=== PATIENT | female | born 1980 | race Caucasian/White ===

== ENCOUNTER 2021-10-21 09:17 | Emergency (ER) | payer BC ==
[2021-10-21] MEDS: Cyclobenzaprine 10 MG Tab PO ONE (10:33)
[2021-10-21] MEDS: Ketorolac 30 MG/ML SDV IM ONE (10:59)
[2021-10-21] MEDS: Nitrofurantoin Monohydrate/Macrocrystalline 100 MG Cap PO ONE (11:00)
== END 2021-10-21 12:15 | disposition home or self-care (01) ==
LOC: FB.ED 09:17
DX: S29.012A Strain of muscle and tendon of back wall of thorax, initial encounter (principal); Z88.0 Allergy status to penicillin; Z88.5 Allergy status to narcotic agent; Z88.8 Allergy status to other drugs, medicaments and biological substances; W00.0XXA Fall on same level due to ice and snow, initial encounter
CPT/HCPCS: 36415; 72072; 72100; 80053; 81001; 85025; 87086; 96372; 99283; A9270-GY; J1885

== ENCOUNTER 2022-01-20 17:59 | Emergency (ER) | payer BC ==
[2022-01-20] MEDS ORDERED: Sodium Chloride 0.9% 1,000 ML IV ONE (18:41)
[2022-01-20] MEDS ORDERED: Ketorolac 30 MG/ML SDV IVPUSH ONE (18:41)
[2022-01-20] MEDS ORDERED: diphenhydrAMINE 50 MG/ML SDV IVPUSH ONE (18:42)
[2022-01-20] MEDS ORDERED: Ondansetron 4 MG/2 ML SDV IVPUSH ONE (18:42)
[2022-01-20] MEDS ORDERED: SUMAtriptan 50 MG Tab PO ONE (18:42)
[2022-01-20] MEDS ORDERED: Labetalol 20 MG/4 ML Syringe IVPUSH STA (20:03)
[2022-01-20] MEDS ORDERED: Morphine 4 MG/ML VIAL IVPUSH ONE (20:58)
[2022-01-20] MEDS ORDERED: HYDROmorphone 2 MG/ML SDV IVPUSH ONE (22:15)
== END 2022-01-20 23:25 | disposition home or self-care (01) ==
LOC: FB.ED 17:59
DX: G43.909 Migraine, unspecified, not intractable, without status migrainosus (principal); F17.210 Nicotine dependence, cigarettes, uncomplicated; Z88.0 Allergy status to penicillin; Z88.5 Allergy status to narcotic agent; Z88.8 Allergy status to other drugs, medicaments and biological substances
CPT/HCPCS: 96361; 96374; 96375; 99282; 99283-25; A9270-GY; J1170; J1200; J1885; J2270; J2405; J3490; J7030

== ENCOUNTER 2022-01-23 03:01 | Emergency (ER) | payer BC ==
[2022-01-23] MEDS ORDERED: Promethazine 25 MG/ML SDV IM ONE (03:17)
[2022-01-23] MEDS ORDERED: Ketorolac 30 MG/ML SDV IM ONE (03:17)
[2022-01-23] MEDS ORDERED: Prochlorperazine 10 MG/2 ML SDV IM ONE (03:17)
[2022-01-23] MEDS ORDERED: Acetaminophen/oxyCODONE 325-5 MG Tab PO PRN (03:17)
[2022-01-23] MEDS ORDERED: Dihydroergotamine 1 MG/1 ML Amp SUBCUT ONE (04:18)
[2022-01-23] MEDS ORDERED: Cyclobenzaprine 10 MG Tab PO ONE (04:19)
== END 2022-01-23 05:42 | disposition home or self-care (01) ==
LOC: FB.ED 03:01
DX: G43.909 Migraine, unspecified, not intractable, without status migrainosus (principal); Z88.6 Allergy status to analgesic agent; Z88.5 Allergy status to narcotic agent; Z88.0 Allergy status to penicillin; Z79.899 Other long term (current) drug therapy
CPT/HCPCS: 96372; 99282; 99283; A9270-GY; J0780; J1110; J1885; J2550

== ENCOUNTER 2022-02-05 03:40 | Emergency (ER) | payer BC ==
[2022-02-05] MEDS ORDERED: Lactated Ringers 1,000 ML IV ONE (04:01)
[2022-02-05] MEDS ORDERED: diphenhydrAMINE 50 MG/ML SDV IVPUSH ONE (04:02)
[2022-02-05] MEDS ORDERED: Ketorolac 30 MG/ML SDV IVPUSH ONE (04:02)
[2022-02-05] MEDS ORDERED: Prochlorperazine 10 MG/2 ML SDV IVPUSH ONE ×2 (04:03→05:28)
[2022-02-05] MEDS: Sodium Chloride 0.9% 10 ML Syringe FLUSH PRN ×3 (04:17→04:30)
[2022-02-05] MEDS ORDERED: Magnesium Sulfate/Water 2 GM in Premix Bag 1 BAG IV ONE (05:22)
[2022-02-05] MEDS ORDERED: Dihydroergotamine 1 MG/ML SDV IVPUSH ONE (05:26)
[2022-02-05] MEDS ORDERED: Atenolol 50 MG Tab PO ONE (06:50)
== END 2022-02-05 07:30 | disposition home or self-care (01) ==
LOC: FB.ED 03:40
DX: G43.909 Migraine, unspecified, not intractable, without status migrainosus (principal); I10 Essential (primary) hypertension; Z88.5 Allergy status to narcotic agent; Z88.8 Allergy status to other drugs, medicaments and biological substances; Z88.0 Allergy status to penicillin
CPT/HCPCS: 96365; 96366; 96375; 96376; 99282; 99283-25; A9270-GY; J0780; J1110; J1200; J1885; J3475; J3490; J7120

== ENCOUNTER 2022-02-26 18:53 | Emergency (ER) | payer BC ==
[2022-02-26] MEDS ORDERED: Morphine 2 MG/ML SYRINGE IVPUSH STA (19:15)
[2022-02-26] MEDS ORDERED: Ketorolac 30 MG/ML SDV IVPUSH ONE (19:15)
[2022-02-26] MEDS ORDERED: Labetalol 20 MG/4 ML Syringe IVPUSH ONE ×2 (19:15→19:58)
[2022-02-26] MEDS ORDERED: hydrOXYzine HCl 50 MG/ML SDV IM ONE (19:15)
[2022-02-26] MEDS ORDERED: Sodium Chloride 0.9% 10 ML Syringe FLUSH PRN (19:15)
[2022-02-26 19:29] LABS: ESTIMATED GFR 94 mL/min (>60)
[2022-02-26] MEDS ORDERED: Potassium Chloride 20 MEQ Tab.ER PO STA (19:53)
[2022-02-26] MEDS ORDERED: cloNIDine 0.1 MG Tab PO STA (19:59)
== END 2022-02-26 21:00 | disposition home or self-care (01) ==
LOC: FB.ED 18:53
DX: R07.89 Other chest pain (principal); G43.909 Migraine, unspecified, not intractable, without status migrainosus; I16.9 Hypertensive crisis, unspecified; F17.210 Nicotine dependence, cigarettes, uncomplicated; Z88.5 Allergy status to narcotic agent; Z88.0 Allergy status to penicillin; Z79.899 Other long term (current) drug therapy; Z90.710 Acquired absence of both cervix and uterus
CPT/HCPCS: 36415; 80053; 84484; 85025; 93005; 96372; 96374; 96375; 96376; 99285; A9270; J1885; J2270; J3410; J3490

== ENCOUNTER 2022-03-05 22:10 | Emergency (ER) | payer BC ==
[2022-03-05] MEDS ORDERED: Sulfamethoxazole/Trimethoprim 800-160 MG Tab PO ONE (22:11)
[2022-03-05] MEDS ORDERED: Acetaminophen/oxyCODONE 325-5 MG Tab PO STA (22:35)
[2022-03-05] MEDS ORDERED: Ondansetron 4 MG Tab.DIS PO STA (22:35)
[2022-03-05] MEDS ORDERED: Ketorolac 30 MG/ML SDV IM STA (22:35)
[2022-03-05 22:52] LABS: ESTIMATED GFR 94 mL/min (>60)
== END 2022-03-05 22:40 | disposition home or self-care (01) ==
LOC: FB.ED 22:10
DX: N39.0 Urinary tract infection, site not specified (principal); G43.909 Migraine, unspecified, not intractable, without status migrainosus; I10 Essential (primary) hypertension; Z88.0 Allergy status to penicillin; Z88.5 Allergy status to narcotic agent; Z79.899 Other long term (current) drug therapy
CPT/HCPCS: 36415; 80048; 81001; 85025; 87086; 96372; 99282; 99283; A9270; J1885; Q0162

== ENCOUNTER 2022-03-07 17:11 | Emergency (ER) | payer BC ==
[2022-03-07] MEDS ORDERED: Cyclobenzaprine 10 MG Tab PO ONE (17:12)
[2022-03-07] MEDS: Ketorolac 30 MG/ML SDV IM ONE (17:31)
[2022-03-07] MEDS: Ondansetron 4 MG Tab.DIS PO ONE (17:31)
[2022-03-07 18:01] LABS: ESTIMATED GFR 58 mL/min (>60)
== END 2022-03-07 20:00 | disposition home or self-care (01) ==
LOC: FB.ED 17:11
DX: N39.0 Urinary tract infection, site not specified (principal); I10 Essential (primary) hypertension; K21.9 Gastro-esophageal reflux disease without esophagitis; Z88.0 Allergy status to penicillin; Z88.5 Allergy status to narcotic agent
CPT/HCPCS: 36415; 74176; 80048; 81001; 85027; 86140; 96372; 99282; 99284; A9270-GY; J1885; Q0162

== ENCOUNTER 2022-03-20 03:16 | Emergency (ER) | payer BC ==
[2022-03-20] MEDS: Ketorolac 30 MG/ML SDV IM ONE (04:09)
[2022-03-20] MEDS: Ondansetron 4 MG Tab.DIS PO ONE (04:10)
[2022-03-20] MEDS: oxyCODONE 5 MG Tab PO STA (04:43)
== END 2022-03-20 04:45 | disposition home or self-care (01) ==
LOC: FB.ED 03:16
DX: G43.909 Migraine, unspecified, not intractable, without status migrainosus (principal); I10 Essential (primary) hypertension; K21.9 Gastro-esophageal reflux disease without esophagitis; F17.210 Nicotine dependence, cigarettes, uncomplicated; Z88.0 Allergy status to penicillin; Z88.5 Allergy status to narcotic agent; Z79.899 Other long term (current) drug therapy
CPT/HCPCS: 96372; 99283; A9270-GY; J1885; Q0162

== ENCOUNTER 2022-04-25 01:46 | Emergency (ER) | payer BC ==
[2022-04-25] MEDS ORDERED: Ondansetron 4 MG Tab.DIS PO ONE (02:04)
[2022-04-25] MEDS ORDERED: Ketorolac 30 MG/ML SDV IM STA (02:04)
[2022-04-25] MEDS ORDERED: Acetaminophen/oxyCODONE 325-5 MG Tab PO STA (02:04)
== END 2022-04-25 02:40 | disposition home or self-care (01) ==
LOC: FB.ED 01:46
DX: G43.909 Migraine, unspecified, not intractable, without status migrainosus (principal); I10 Essential (primary) hypertension; Z88.5 Allergy status to narcotic agent; Z88.0 Allergy status to penicillin; Z79.899 Other long term (current) drug therapy; Z90.710 Acquired absence of both cervix and uterus
CPT/HCPCS: 96372; 99283; A9270; J1885; Q0162

== ENCOUNTER 2022-05-13 21:46 | Emergency (ER) | payer BC ==
[2022-05-13] MEDS ORDERED: Ondansetron 4 MG Tab.DIS PO STA (22:15)
[2022-05-13] MEDS ORDERED: Acetaminophen/oxyCODONE 325-5 MG Tab PO STA (22:15)
[2022-05-13] MEDS ORDERED: Ketorolac 30 MG/ML SDV IM STA (22:15)
== END 2022-05-13 22:55 | disposition home or self-care (01) ==
LOC: FB.ED 21:46
DX: G43.909 Migraine, unspecified, not intractable, without status migrainosus (principal); I10 Essential (primary) hypertension; Z88.5 Allergy status to narcotic agent; Z88.0 Allergy status to penicillin; Z90.710 Acquired absence of both cervix and uterus
CPT/HCPCS: 96372; 99283; A9270; J1885; Q0162

== ENCOUNTER 2022-05-14 16:30 | Emergency (ER) | payer BC ==
[2022-05-14] MEDS ORDERED: Acetaminophen/oxyCODONE 325-5 MG Tab PO ONE (16:31)
[2022-05-14] MEDS ORDERED: Acetaminophen/oxyCODONE 325-5 MG Tab PO PRN (16:47)
[2022-05-14] MEDS ORDERED: hydrOXYzine HCl 50 MG/ML SDV IM ONE (16:49)
[2022-05-14] MEDS ORDERED: Ketorolac 30 MG/ML SDV IM STA (16:49)
== END 2022-05-14 18:30 | disposition home or self-care (01) ==
LOC: FB.ED 16:30
DX: G43.909 Migraine, unspecified, not intractable, without status migrainosus (principal); I10 Essential (primary) hypertension; Z88.0 Allergy status to penicillin; Z88.5 Allergy status to narcotic agent; Z79.899 Other long term (current) drug therapy
CPT/HCPCS: 96372; 99283; A9270-GY; J1885; J3410

== ENCOUNTER 2022-07-04 03:13 | Emergency (ER) | payer BC ==
[2022-07-04] MEDS ORDERED: Ketorolac 30 MG/ML SDV IM ONE (03:45)
[2022-07-04] MEDS ORDERED: hydrOXYzine HCl 50 MG/ML SDV IM ONE (03:46)
[2022-07-04] MEDS ORDERED: hydrOXYzine HCl 50 MG/ML SDV ONE (03:53)
[2022-07-04] MEDS: Ketorolac 30 MG/ML SDV IVPUSH ONE ×2 (03:53→04:06)
[2022-07-04] MEDS: Metoclopramide 10 MG/2 ML SDV IVPUSH ONE ×2 (03:54→03:55)
== END 2022-07-04 04:05 | disposition home or self-care (01) ==
LOC: FB.ED 03:13
DX: G43.919 Migraine, unspecified, intractable, without status migrainosus (principal); I10 Essential (primary) hypertension; F17.210 Nicotine dependence, cigarettes, uncomplicated; Z79.899 Other long term (current) drug therapy; Z90.710 Acquired absence of both cervix and uterus
CPT/HCPCS: 96372; 96374; 99283; J1885; J2765; J3410

== ENCOUNTER 2022-07-08 03:15 | Emergency (ER) | payer BC ==
[2022-07-08] MEDS ORDERED: Sodium Chloride 0.9% 10 ML Syringe FLUSH PRN (03:59)
[2022-07-08] MEDS ORDERED: Sodium Chloride 0.9% 1,000 ML IV ONE (04:00)
[2022-07-08] MEDS ORDERED: Ketorolac 30 MG/ML SDV IVPUSH ONE (04:00)
[2022-07-08] MEDS ORDERED: Prochlorperazine 10 MG/2 ML SDV IVPUSH ONE (04:00)
[2022-07-08] MEDS ORDERED: Acetaminophen/oxyCODONE 325-5 MG Tab PO ONE (04:57)
== END 2022-07-08 05:11 | disposition home or self-care (01) ==
LOC: FB.ED 03:15
DX: G43.919 Migraine, unspecified, intractable, without status migrainosus (principal); I10 Essential (primary) hypertension; Z88.5 Allergy status to narcotic agent; Z88.0 Allergy status to penicillin; Z79.899 Other long term (current) drug therapy
CPT/HCPCS: 96361; 96374; 96375; 99283; A9270; J0780; J1885; J7030

== ENCOUNTER 2022-09-02 22:28 | Emergency (ER) | payer SELFPAY ==
[2022-09-02] MEDS ORDERED: Cyclobenzaprine 10 MG Tab PO ONE (22:42)
[2022-09-02] MEDS ORDERED: Acetaminophen/oxyCODONE 325-5 MG Tab PO PRN (22:42)
[2022-09-02] MEDS ORDERED: Ondansetron 4 MG Tab.DIS PO ONE (23:51)
== END 2022-09-03 01:19 | disposition home or self-care (01) ==
LOC: FB.ED 22:28
DX: S16.1XXA Strain of muscle, fascia and tendon at neck level, initial encounter (principal); S39.012A Strain of muscle, fascia and tendon of lower back, initial encounter; J06.9 Acute upper respiratory infection, unspecified; I10 Essential (primary) hypertension; Z88.5 Allergy status to narcotic agent; Z88.0 Allergy status to penicillin; Z79.899 Other long term (current) drug therapy; Z90.710 Acquired absence of both cervix and uterus; Z72.0 Tobacco use; W00.9XXA Unspecified fall due to ice and snow, initial encounter
CPT/HCPCS: 72040; 72072; 72100; 72220; 87651-QW; 99283; A9270-GY; Q0162

== ENCOUNTER 2022-09-15 21:15 | Emergency (ER) | payer SELFPAY ==
[2022-09-15] MEDS ORDERED: Acetaminophen/oxyCODONE 325-5 MG Tab PO PRN (21:27)
[2022-09-15] MEDS ORDERED: Ketorolac 30 MG/ML SDV IM STA (21:27)
[2022-09-15] MEDS ORDERED: hydrOXYzine HCl 50 MG/ML SDV IM ONE (21:27)
== END 2022-09-15 22:20 | disposition home or self-care (01) ==
LOC: FB.ED 21:15
DX: G43.909 Migraine, unspecified, not intractable, without status migrainosus (principal); M50.90 Cervical disc disorder, unspecified, unspecified cervical region; I10 Essential (primary) hypertension; K21.9 Gastro-esophageal reflux disease without esophagitis; Z88.0 Allergy status to penicillin; Z88.5 Allergy status to narcotic agent
CPT/HCPCS: 96372; 99283; A9270-GY; J1885; J3410

== ENCOUNTER 2022-10-28 19:49 | Emergency (ER) | payer SELFPAY ==
[2022-10-28] MEDS ORDERED: hydrOXYzine HCl 50 MG/ML SDV IM ONE (20:43)
[2022-10-28] MEDS ORDERED: Ketorolac 30 MG/ML SDV IM STA (20:43)
[2022-10-28] MEDS ORDERED: Acetaminophen/oxyCODONE 325-5 MG Tab PO STA (20:43)
[2022-10-28] MEDS ORDERED: LORazepam 2 MG/ML SDV IVPUSH STA (20:46)
[2022-10-28] MEDS ORDERED: Ketorolac 30 MG/ML SDV ONE (21:12)
== END 2022-10-28 21:20 | disposition home or self-care (01) ==
LOC: FB.ED 19:49
DX: G43.909 Migraine, unspecified, not intractable, without status migrainosus (principal); M50.90 Cervical disc disorder, unspecified, unspecified cervical region; I10 Essential (primary) hypertension; Z88.0 Allergy status to penicillin; Z88.5 Allergy status to narcotic agent
CPT/HCPCS: 96372; 99283; A9270-GY; J1885; J3410

== ENCOUNTER 2022-10-31 17:47 | Emergency (ER) | payer SELFPAY ==
[2022-10-31] MEDS ORDERED: Acetaminophen/oxyCODONE 325-5 MG Tab PO PRN (18:09)
[2022-10-31] MEDS ORDERED: hydrOXYzine HCl 50 MG/ML SDV IM ONE (18:10)
[2022-10-31] MEDS ORDERED: Ketorolac 30 MG/ML SDV IM ONE (18:10)
== END 2022-10-31 18:53 | disposition home or self-care (01) ==
LOC: FB.ED 17:47
DX: G43.909 Migraine, unspecified, not intractable, without status migrainosus (principal); I10 Essential (primary) hypertension; Z88.5 Allergy status to narcotic agent; Z88.0 Allergy status to penicillin; Z72.0 Tobacco use
CPT/HCPCS: 96372; 99283; A9270-GY; J1885; J3410

== ENCOUNTER 2022-11-02 18:20 | Emergency (ER) | payer OTHER ==
[2022-11-02] MEDS ORDERED: Acetaminophen/oxyCODONE 325-5 MG Tab PO ONE (18:21)
== END 2022-11-02 20:11 | disposition home or self-care (01) ==
LOC: FB.ED 18:20
DX: S43.402A Unspecified sprain of left shoulder joint, initial encounter (principal); I10 Essential (primary) hypertension; K21.9 Gastro-esophageal reflux disease without esophagitis; Z88.5 Allergy status to narcotic agent; Z88.0 Allergy status to penicillin; V86.95XA Unspecified occupant of 3- or 4- wheeled all-terrain vehicle (ATV) injured in nontraffic accident, initial encounter; Y92.410 Unspecified street and highway as the place of occurrence of the external cause
CPT/HCPCS: 73030; 73110; 99283; A9270

== ENCOUNTER 2022-11-11 13:00 | Emergency (ER) | payer SELFPAY ==
[2022-11-11] MEDS ORDERED: Ketorolac 30 MG/ML SDV IM ONE (13:56)
[2022-11-11] MEDS ORDERED: hydrOXYzine HCl 50 MG/ML SDV IM ONE (13:56)
[2022-11-11] MEDS ORDERED: Acetaminophen/oxyCODONE 325-5 MG Tab PO ONE (13:57)
== END 2022-11-11 14:30 | disposition home or self-care (01) ==
LOC: FB.ED 13:00
DX: G43.911 Migraine, unspecified, intractable, with status migrainosus (principal); I10 Essential (primary) hypertension; Z88.0 Allergy status to penicillin; Z88.5 Allergy status to narcotic agent; Z79.899 Other long term (current) drug therapy; Z90.710 Acquired absence of both cervix and uterus; Z72.0 Tobacco use
CPT/HCPCS: 96372; 99283; A9270; J1885; J3410

== ENCOUNTER 2022-11-16 11:19 | Emergency (ER) | payer SELFPAY ==
[2022-11-16] MEDS ORDERED: Prochlorperazine 10 MG/2 ML SDV IM ONE (12:21)
[2022-11-16] MEDS ORDERED: Ketorolac 30 MG/ML SDV IM ONE (12:23)
[2022-11-16] MEDS ORDERED: Acetaminophen/oxyCODONE 325-5 MG Tab PO PRN (12:23)
== END 2022-11-16 13:22 | disposition home or self-care (01) ==
LOC: FB.ED 11:19
DX: G43.911 Migraine, unspecified, intractable, with status migrainosus (principal); I10 Essential (primary) hypertension; Z88.0 Allergy status to penicillin; Z88.5 Allergy status to narcotic agent; Z72.0 Tobacco use
CPT/HCPCS: 96372; 99283; A9270; J0780; J1885

== ENCOUNTER 2022-11-21 19:54 | Emergency (ER) | payer MEDICAID ==
[2022-11-21] MEDS: hydrOXYzine HCl 50 MG/ML SDV IM ONE (20:19)
[2022-11-21] MEDS: Acetaminophen/oxyCODONE 325-5 MG Tab PO STA (20:19)
[2022-11-21] MEDS: Ketorolac 30 MG/ML SDV IM STA (20:19)
== END 2022-11-21 21:10 | disposition home or self-care (01) ==
LOC: FB.ED 19:54
DX: G43.911 Migraine, unspecified, intractable, with status migrainosus (principal); M50.90 Cervical disc disorder, unspecified, unspecified cervical region; I10 Essential (primary) hypertension; F17.210 Nicotine dependence, cigarettes, uncomplicated; Z88.0 Allergy status to penicillin; Z88.5 Allergy status to narcotic agent; Z79.899 Other long term (current) drug therapy
CPT/HCPCS: 96372; 99283; A9270; J1885; J3410

== ENCOUNTER 2022-11-23 18:51 | Emergency (ER) | payer MEDICAID ==
[2022-11-23] MEDS: Ketorolac 30 MG/ML SDV IM ONE (19:21)
[2022-11-23] MEDS: Prochlorperazine 10 MG/2 ML SDV IM ONE (19:21)
[2022-11-23] MEDS: Acetaminophen/oxyCODONE 325-5 MG Tab PO SCH (19:22)
== END 2022-11-23 19:30 | disposition home or self-care (01) ==
LOC: FB.ED 18:51
DX: G43.909 Migraine, unspecified, not intractable, without status migrainosus (principal); I10 Essential (primary) hypertension; Z88.0 Allergy status to penicillin; Z88.5 Allergy status to narcotic agent
CPT/HCPCS: 96372; 99283; A9270-GY; J0780; J1885

== ENCOUNTER 2022-11-25 14:53 | Emergency (ER) | payer MEDICAID ==
[2022-11-25] MEDS ORDERED: Ketorolac 30 MG/ML SDV IM STA (15:21)
[2022-11-25] MEDS ORDERED: Cyclobenzaprine 10 MG Tab PO STA (15:21)
[2022-11-25] MEDS ORDERED: Acetaminophen/oxyCODONE 325-5 MG Tab PO PRN (16:15)
== END 2022-11-25 17:15 | disposition home or self-care (01) ==
LOC: FB.ED 14:53
DX: S39.012A Strain of muscle, fascia and tendon of lower back, initial encounter (principal); I10 Essential (primary) hypertension; Z88.0 Allergy status to penicillin; Z88.5 Allergy status to narcotic agent; Z72.0 Tobacco use; W00.0XXA Fall on same level due to ice and snow, initial encounter
CPT/HCPCS: 72040; 72072; 72100; 96372; 99283; A9270; J1885

== ENCOUNTER 2022-12-02 11:27 | Emergency (ER) | payer MEDICAID, OTHER ==
[2022-12-02] MEDS ORDERED: Prochlorperazine 10 MG/2 ML SDV IM ONE (12:20)
[2022-12-02] MEDS ORDERED: diphenhydrAMINE 50 MG/ML SDV IM ONE (12:20)
[2022-12-02] MEDS ORDERED: Ketorolac 30 MG/ML SDV IM ONE (12:21)
[2022-12-02] MEDS ORDERED: Acetaminophen/oxyCODONE 325-5 MG Tab PO STA (12:21)
[2022-12-02] MEDS ORDERED: Dexamethasone 4 MG/ML 5 ML MDV IM ONE (12:22)
== END 2022-12-02 12:43 | disposition home or self-care (01) ==
LOC: FB.ED 11:27
DX: G43.911 Migraine, unspecified, intractable, with status migrainosus (principal); M50.90 Cervical disc disorder, unspecified, unspecified cervical region
CPT/HCPCS: 96372; 99283; A9270; J0780; J1100; J1200; J1885

== ENCOUNTER 2022-12-10 18:15 | Emergency (ER) | payer SELFPAY ==
[2022-12-10] MEDS ORDERED: Ketorolac 30 MG/ML SDV IM ONE (19:20)
[2022-12-10] MEDS ORDERED: Acetaminophen/oxyCODONE 325-5 MG Tab PO ONE (19:21)
[2022-12-10] MEDS ORDERED: Prochlorperazine 10 MG Tab PO ONE (19:21)
== END 2022-12-10 19:40 | disposition home or self-care (01) ==
LOC: FB.ED 18:15
DX: S16.1XXA Strain of muscle, fascia and tendon at neck level, initial encounter (principal); G43.909 Migraine, unspecified, not intractable, without status migrainosus; M40.50 Lordosis, unspecified, site unspecified; I10 Essential (primary) hypertension; Z72.0 Tobacco use; Z88.0 Allergy status to penicillin; Z88.5 Allergy status to narcotic agent
CPT/HCPCS: 96372; 99283; A9270-GY; J1885; Q0164

== ENCOUNTER 2022-12-16 15:25 | Emergency (ER) | payer SELFPAY ==
[2022-12-16] MEDS ORDERED: Prochlorperazine 10 MG Tab PO ONE (16:18)
[2022-12-16] MEDS ORDERED: Ketorolac 30 MG/ML SDV IM ONE (16:18)
[2022-12-16] MEDS ORDERED: Acetaminophen/oxyCODONE 325-5 MG Tab PO ONE (16:20)
== END 2022-12-16 16:45 | disposition home or self-care (01) ==
LOC: FB.ED 15:25
DX: G43.911 Migraine, unspecified, intractable, with status migrainosus (principal); I10 Essential (primary) hypertension; Z72.0 Tobacco use; Z88.5 Allergy status to narcotic agent; Z88.0 Allergy status to penicillin; Z79.899 Other long term (current) drug therapy; Z98.890 Other specified postprocedural states
CPT/HCPCS: 96372; 99283; A9270-GY; J1885; Q0164

== ENCOUNTER 2023-01-01 09:52 | Emergency (ER) | payer SELFPAY ==
[2023-01-01] MEDS ORDERED: Acetaminophen/oxyCODONE 325-5 MG Tab PO STA (10:24)
[2023-01-01] MEDS ORDERED: Ondansetron 4 MG Tab.DIS PO ONE (10:24)
[2023-01-01] MEDS ORDERED: Ketorolac 30 MG/ML SDV IM STA (10:24)
== END 2023-01-01 10:57 | disposition home or self-care (01) ==
LOC: FB.ED 09:52
DX: G43.909 Migraine, unspecified, not intractable, without status migrainosus (principal); I10 Essential (primary) hypertension; Z88.5 Allergy status to narcotic agent; Z88.0 Allergy status to penicillin; Z79.899 Other long term (current) drug therapy
CPT/HCPCS: 96372; 99283; A9270; J1885; Q0162

== ENCOUNTER 2023-01-10 20:46 | Emergency (ER) | payer SELFPAY ==
[2023-01-10] MEDS ORDERED: Promethazine 25 MG/ML SDV IM PRN (21:06)
[2023-01-10] MEDS ORDERED: Ketorolac 30 MG/ML SDV IM ONE (21:06)
[2023-01-10] MEDS ORDERED: HYDROmorphone 2 MG/ML SDV IM ONE (21:07)
[2023-01-10] MEDS ORDERED: Dexamethasone 4 MG/ML SDV IM ONE (21:11)
== END 2023-01-10 23:08 | disposition home or self-care (01) ==
LOC: FB.ED 20:46
DX: G43.911 Migraine, unspecified, intractable, with status migrainosus (principal); I10 Essential (primary) hypertension; Z79.899 Other long term (current) drug therapy; Z98.890 Other specified postprocedural states; Z88.5 Allergy status to narcotic agent; Z88.0 Allergy status to penicillin
CPT/HCPCS: 96372; 99283; J1100; J1170; J2550

== ENCOUNTER 2023-01-24 10:19 | Emergency (ER) | payer SELFPAY ==
[2023-01-24] MEDS ORDERED: Ondansetron 8 MG Tab.DIS PO ONE (10:39)
[2023-01-24] MEDS ORDERED: Acetaminophen/oxyCODONE 325-5 MG Tab PO STA (10:39)
[2023-01-24] MEDS ORDERED: Dihydroergotamine 1 MG/1 ML Amp SUBCUT ONE (10:39)
[2023-01-24] MEDS ORDERED: Ketorolac 30 MG/ML SDV IM STA (10:39)
== END 2023-01-24 11:25 | disposition home or self-care (01) ==
LOC: FB.ED 10:19
DX: G43.909 Migraine, unspecified, not intractable, without status migrainosus (principal); I10 Essential (primary) hypertension; Z88.0 Allergy status to penicillin; Z88.5 Allergy status to narcotic agent
CPT/HCPCS: 96372; 99283; A9270; J1110; J1885

== ENCOUNTER 2023-02-17 14:19 | Emergency (ER) | payer MEDICAID ==
[2023-02-17] MEDS: Dihydroergotamine 1 MG/1 ML Amp SUBCUT ONE (14:54)
[2023-02-17] MEDS: Cyclobenzaprine 10 MG Tab PO ONE (14:54)
[2023-02-17] MEDS: Ondansetron 8 MG Tab.DIS PO ONE (14:55)
[2023-02-17] MEDS: Acetaminophen/oxyCODONE 325-5 MG Tab PO PRN (14:55)
[2023-02-17] MEDS: Ketorolac 30 MG/ML SDV IM ONE (15:03)
== END 2023-02-17 15:45 | disposition home or self-care (01) ==
LOC: FB.ED 14:19
DX: G43.909 Migraine, unspecified, not intractable, without status migrainosus (principal); G89.4 Chronic pain syndrome; M54.2 Cervicalgia; I10 Essential (primary) hypertension; Z88.0 Allergy status to penicillin; Z88.5 Allergy status to narcotic agent; Z79.899 Other long term (current) drug therapy
CPT/HCPCS: 96372; 99283; A9270-GY; J1110; J1885

== ENCOUNTER 2023-03-25 11:34 | Emergency (ER) | payer SELFPAY ==
[2023-03-25] MEDS ORDERED: Prochlorperazine 10 MG/2 ML SDV IM ONE (12:01)
[2023-03-25] MEDS ORDERED: Ketorolac 30 MG/ML SDV IM ONE (12:01)
[2023-03-25] MEDS ORDERED: Acetaminophen/oxyCODONE 325-5 MG Tab PO STA (12:01)
== END 2023-03-25 12:22 | disposition home or self-care (01) ==
LOC: FB.ED 11:34
DX: G43.909 Migraine, unspecified, not intractable, without status migrainosus (principal); I10 Essential (primary) hypertension; Z88.5 Allergy status to narcotic agent; Z88.0 Allergy status to penicillin
CPT/HCPCS: 96372; 99283; A9270-GY; J0780; J1885

== ENCOUNTER 2023-06-29 10:41 | Emergency (ER) | payer SELFPAY ==
[2023-06-29] MEDS ORDERED: Ketorolac 30 MG/ML SDV IM STA (10:59)
[2023-06-29] MEDS ORDERED: Acetaminophen/oxyCODONE 325-5 MG Tab PO STA (10:59)
[2023-06-29] MEDS ORDERED: Prochlorperazine 10 MG/2 ML SDV IM ONE (10:59)
== END 2023-06-29 11:14 | disposition home or self-care (01) ==
LOC: FB.ED 10:41
DX: G43.909 Migraine, unspecified, not intractable, without status migrainosus (principal); I10 Essential (primary) hypertension; F17.210 Nicotine dependence, cigarettes, uncomplicated; Z98.890 Other specified postprocedural states; Z88.5 Allergy status to narcotic agent; Z88.0 Allergy status to penicillin; Z79.899 Other long term (current) drug therapy
CPT/HCPCS: 96372; 99283; A9270-GY; J0780; J1885

== ENCOUNTER 2023-08-25 18:04 | Emergency (ER) | payer SELFPAY ==
[2023-08-25] MEDS ORDERED: Ketorolac 30 MG/ML SDV IM ONE (18:40)
[2023-08-25] MEDS ORDERED: Prochlorperazine 10 MG/2 ML SDV IM ONE (18:40)
[2023-08-25] MEDS ORDERED: Acetaminophen/oxyCODONE 325-5 MG Tab PO STA (18:40)
== END 2023-08-25 19:04 | disposition home or self-care (01) ==
LOC: FB.ED 18:04
DX: G43.909 Migraine, unspecified, not intractable, without status migrainosus (principal); I10 Essential (primary) hypertension; Z88.5 Allergy status to narcotic agent; Z88.0 Allergy status to penicillin; Z79.899 Other long term (current) drug therapy; Z90.710 Acquired absence of both cervix and uterus
CPT/HCPCS: 96372; 99283; A9270; J0780; J1885

== ENCOUNTER 2023-09-18 18:11 | Emergency (ER) | payer SELFPAY ==
[2023-09-18] MEDS: SUMAtriptan 6 MG/0.5 ML SDV SUBCUT ONE ×2 (18:29→18:56)
[2023-09-18] MEDS: diphenhydrAMINE 50 MG/ML SDV IVPUSH ONE (18:29)
[2023-09-18] MEDS: Ketorolac 30 MG/ML SDV IVPUSH ONE (18:29)
[2023-09-18] MEDS: Metoclopramide 10 MG/2 ML SDV IVPUSH ONE (18:29)
[2023-09-18] MEDS: Metoclopramide 10 MG/2 ML SDV IM ONE (18:55)
[2023-09-18] MEDS: Ketorolac 30 MG/ML SDV IM ONE (18:56)
[2023-09-18] MEDS: diphenhydrAMINE 50 MG/ML SDV IM ONE (18:56)
== END 2023-09-18 19:07 | disposition home or self-care (01) ==
LOC: FB.ED 18:11
DX: G43.909 Migraine, unspecified, not intractable, without status migrainosus (principal); F17.210 Nicotine dependence, cigarettes, uncomplicated; I10 Essential (primary) hypertension; Z79.899 Other long term (current) drug therapy; Z88.0 Allergy status to penicillin; Z88.8 Allergy status to other drugs, medicaments and biological substances
CPT/HCPCS: 96372; 99283; J1200; J1885; J2765; J3030

== ENCOUNTER 2023-12-18 20:33 | Emergency (ER) | payer SELFPAY ==
[2023-12-18] MEDS: Ondansetron 4 MG/2 ML SDV IM ONE (21:03)
[2023-12-18] MEDS: Ketorolac 30 MG/ML SDV IM ONE (21:03)
[2023-12-18] MEDS: hydrOXYzine HCl 50 MG/ML SDV IM ONE (21:04)
== END 2023-12-18 21:20 | disposition home or self-care (01) ==
LOC: FB.ED 20:33
DX: G43.911 Migraine, unspecified, intractable, with status migrainosus (principal); G44.201 Tension-type headache, unspecified, intractable; I10 Essential (primary) hypertension; Z79.899 Other long term (current) drug therapy; Z88.0 Allergy status to penicillin; Z88.8 Allergy status to other drugs, medicaments and biological substances
CPT/HCPCS: 96372; 99283; J1885; J2405; J3410

== ENCOUNTER 2024-01-02 08:06 | Emergency (ER) | payer SELFPAY ==
[2024-01-02] MEDS: Ketorolac 30 MG/ML SDV IM ONE (08:45)
[2024-01-02] MEDS: Prochlorperazine 10 MG/2 ML SDV IM ONE (08:46)
[2024-01-02] MEDS: Diazepam 5 MG Tab PO ONE (08:46)
== END 2024-01-02 08:54 | disposition home or self-care (01) ==
LOC: FB.ED 08:06
DX: G43.111 Migraine with aura, intractable, with status migrainosus (principal); R25.2 Cramp and spasm; I10 Essential (primary) hypertension; E11.9 Type 2 diabetes mellitus without complications; F17.210 Nicotine dependence, cigarettes, uncomplicated; Z88.0 Allergy status to penicillin; Z88.5 Allergy status to narcotic agent; Z79.899 Other long term (current) drug therapy
CPT/HCPCS: 96372; 99283; A9270; J0780; J1885

== ENCOUNTER 2024-03-02 18:48 | Emergency (ER) | payer MEDICAID ==
[2024-03-02] MEDS: Acetaminophen/oxyCODONE 325-5 MG Tab PO STA (19:22)
[2024-03-02] MEDS: Ketorolac 30 MG/ML SDV IM ONE (19:23)
[2024-03-02] MEDS: Prochlorperazine 10 MG/2 ML SDV IM ONE (19:24)
== END 2024-03-02 19:50 | disposition home or self-care (01) ==
LOC: FB.ED 18:48
DX: G43.111 Migraine with aura, intractable, with status migrainosus (principal); I10 Essential (primary) hypertension; K21.9 Gastro-esophageal reflux disease without esophagitis; E11.9 Type 2 diabetes mellitus without complications; F17.210 Nicotine dependence, cigarettes, uncomplicated; Z90.710 Acquired absence of both cervix and uterus; Z79.899 Other long term (current) drug therapy; Z88.5 Allergy status to narcotic agent; Z88.0 Allergy status to penicillin
CPT/HCPCS: 96372; 99283; A9270; J0780; J1885